=== PATIENT | male | born 1990 | race Caucasian/White ===

== ENCOUNTER 2017-10-18 14:58 | Emergency (ER) | payer OTHER ==
[2017-10-18] MEDS ORDERED: IBUPROFEN 600 MG TAB PO ONE (15:29)
--- NOTE | 2017-10-18 15:30 | EDPHY ---
HPI/HX/ROS/PE/MDM Narrative: CHIEF COMPLAINT: Finger injury HPI: The patient is a 27 y/o male complaining of pain in the MCPJ of his right index finger. One hour ago he was "lifting a tub full of dishes and caught my knuckle on the handle of the fridge" causing the MCP joint of his right index finger to hyperextend. He now has pain primarily on the volar aspect of the joint, but denies weakness, paresthesias, or pain with range of motion. No other injuries. He took CBD oil and a "[employer] mushroom potion" to treat his pain. He is normally healthy. REVIEW OF SYSTEMS: Aside from elements discussed in the HPI, a comprehensive 10-point review of systems was reviewed and is negative. PMH: Denies SOCIAL HISTORY: Employed at [employer]. Plays piano. PHYSICAL EXAM: General:Patient is alert, in no acute distress. ENT:Eyes are normal to inspection. ENT inspection normal. Neck: Normal inspection. Full range of motion. Respiratory:No respiratory distress. Cardiovascular: Normal cap refill. Skin: Normal color. No rash. Warm and dry. Extremities: Superficial abrasion over right index MCP, otherwise normal appearance. Full range of motion. Neuro: Oriented x3. Normal motor function. Normal sensory function. ED Course: This is a healthy 27 y/o male who presents with pain in his right index MCPJ secondary to a hyperextension injury at work this afternoon. He has a superficial abrasion overlying the joint and is neurovascularly intact. Plan for x-ray to rule out fracture and 600mg PO ibuprofen for pain. Finger x-ray: negative. Reassessed patient and discussed results. He will be placed in an aluminum splint with standard sprain care and follow up instructions. He understands he needs to talk with his employer regarding workman's comp follow up. Return precautions discussed. He is comfortable with plan for discharge. - Data Points Imaging Results: Imaging Impressions Finger X-Ray 10/18/17 15:30 Impression: Negative. Imaging: I viewed and interpreted images myself Medications Given: Discontinued Medications Ibuprofen (Motrin) 600 mg PO EDNOW ONE Stop: 10/18/17 15:30 Last Admin: 10/18/17 15:35 Dose: 600 mg General Time Seen by Provider: 10/18/17 15:19 Initial Vital Signs: Initial Vital Signs Temperature (C) 36.9 C 10/18/17 15:06 Heart Rate 106 H 10/18/17 15:06 Respiratory Rate 16 10/18/17 15:06 Blood Pressure 125/78 H 10/18/17 15:06 O2 Sat (%) 93 10/18/17 15:06 O2 Delivery Mode Room Air Allergies/Adverse Reactions: No Known Allergies Allergy (Unverified 10/18/17 15:06) Home Medications: Medication Instructions Recorded NK [No Known Home Meds] 10/18/17 Departure - Departure Disposition: Home, Routine, Self-Care Clinical Impression: Finger sprain Qualifiers: Encounter type: initial encounter Finger: index finger Sprain of finger site: metacarpophalangeal joint Laterality: right Qualified Code(s): S63.650A - Sprain of metacarpophalangeal joint of right index finger, initial encounter Condition: Good Instructions: Finger Sprain (ED) Additional Instructions: 1. Take 600mg ibuprofen every 6-8 hours as needed for pain or swelling over the next 2-3 days. A cold pack applied to sore areas may be helpful for pain as well. 2. Wear splint for the next several days. 3. Follow up with your hand specialist for unimproved symptoms over the next few days. 4. Return to the ED for any worsening of condition. Follow up with worker's comp clinic as directed by your HR department. Referrals: Juan Alberto Leonard MD [Medical Doctor] - As per Instructions Report Scribed for: Sarabjit Richard Report Scribed by: Agustina Nunez Date of Report: 10/18/17 Time of Report: 15:30 Physician Review and Approval Statement: Portions of this note were transcribed by an ED scribe. I personally performed the history, physical exam, and medical decision making; and confirm the accuracy of the information in the transcribed note.
[2017-10-18 16:16] VITALS: BP 107/70; PULSE 81; RESP 18; TEMP 98.1; O2SAT 95
== END 2017-10-18 16:19 | disposition home or self-care (01) ==
DX: S63.650A Sprain of metacarpophalangeal joint of right index finger, initial encounter (principal); X50.0XXA Overexertion from strenuous movement or load, initial encounter; Y92.69 Other specified industrial and construction area as the place of occurrence of the external cause; Y99.0 Civilian activity done for income or pay; Y93.89 Activity, other specified
CPT/HCPCS: L3925

== ENCOUNTER 2018-12-17 00:37 | Emergency (ER) | payer OTHER ==
--- NOTE | 2018-12-17 00:51 | EDPHY ---
H & P Stated Complaint: right elbow injury Time Seen by Provider: 12/17/18 00:49 HPI/ROS: Chief Complaint: Elbow injury HPI: 28-year-old male had a mechanical slip and fall this morning, landing on his right elbow. Had immediate onset of pain and swelling. No other injuries. No numbness or weakness. Unable to move his arm secondary to pain. ROS: 10 systems were reviewed and were negative except those elements noted in the HPI. PMH: Denies Social History: No smoking, no alcohol, no recreational drug use Family History: non-contributory Physical Exam: General: Awake, alert, no acute distress Right arm: Shoulder is nontender full range of motion. Right elbow: Significant swelling. He has tenderness diffusely, primarily over the olecranon. Right wrist: Nontender, no deformity Right hand: No tenderness, no deformity. Sensation intact in the radial, median, and ulnar nerve distribution. Capillary refills less than 2 sec. 2+ radial ulnar pulses. Skin: No rash - Personal History Current Tetanus Diphtheria and Acellular Pertussis (TDAP): Yes - Medical/Surgical History Hx Asthma: No Hx Chronic Respiratory Disease: No Hx Diabetes: No Hx Cardiac Disease: No Hx Renal Disease: No Hx Cirrhosis: No Hx Alcoholism: No Hx HIV/AIDS: No Hx Splenectomy or Spleen Trauma: No Other PMH: none - Social History Smoking Status: Current every day smoker Constitutional: Initial Vital Signs Temperature (C) 36.6 C 12/17/18 00:40 Heart Rate 84 12/17/18 00:40 Respiratory Rate 18 12/17/18 00:40 Blood Pressure 139/81 H 12/17/18 00:40 O2 Sat (%) 95 12/17/18 00:40 O2 Delivery Mode Room Air Allergies/Adverse Reactions: No Known Allergies Allergy (Unverified 12/17/18 00:40) Home Medications: Medication Instructions Recorded Hydrocodone/Acetaminophen 1 - 2 each PO Q4-6PRN PRN #10 12/17/18 [Hydrocodon-Acetaminophen 5-325] tablet Medical Decision Making - Diagnostics Imaging Results: X-ray shows a lateral humeral epicondyle fracture. Imaging: I viewed and interpreted images myself ED Course/Re-evaluation: Patient placed in a posterior splint. Splint he has good positioning with normal perfusion. Patient is comfortable. Will discharge with follow-up with Orthopedics. Departure - Departure Disposition: Home, Routine, Self-Care Clinical Impression: Elbow fracture Condition: Good Instructions: Elbow Fracture (ED), Splint Care (ED) Additional Instructions: Take ibuprofen, 600 mg every 8 hr. You may alternate with acetaminophen, 1000 mg every 8 hr. You may take hydrocodone instead of the acetaminophen for severe pain. Follow up with orthopedic surgeon in 2-3 days for further evaluation. Referrals: Josue Lindsay MD [Medical Doctor] - As per Instructions Prescriptions: Hydrocodone/Acetaminophen [Hydrocodon-Acetaminophen 5-325] 1 - 2 each PO Q4- 6PRN PRN #10 tablet PRN Reason: Pain, Severe
[2018-12-17] MEDS ORDERED: HYDROCOD/APAP 5/325 PREPACK#6 BTL TAKEHOME ONE ×2 (01:56→01:57)
[2018-12-17 02:01] VITALS: BP 126/74
== END 2018-12-17 01:59 | disposition home or self-care (01) ==
PROC: 2W38X1Z Immobilization of Right Upper Extremity using Splint (ICD-10-PCS; principal; 2018-12-17)
DX: S42.431A Displaced fracture (avulsion) of lateral epicondyle of right humerus, initial encounter for closed fracture (principal); M25.421 Effusion, right elbow; W01.0XXA Fall on same level from slipping, tripping and stumbling without subsequent striking against object, initial encounter
CPT/HCPCS: A4565